=== PATIENT | female | born 1945 | race Caucasian/White ===

== ENCOUNTER → 2020-01-08 | Outpatient (CLI) | payer OTHER, BC ==
[~2020-01-08] MED LIST: ACID REDUCER20 MG PO; FENOFIBRATE160 MG PO; LISINOPRIL-HCT1 EAC1 PO; MULTIVITAMINS1 EAC7 PO; TYLENOL325 M1 PO
== END ==
LOC: LAB 13:49
PROVIDERS: ATTEND Orthopaedic Surgery
DX: Z01.812 Encounter for preprocedural laboratory examination (principal); Z20.828 Contact with and (suspected) exposure to other viral communicable diseases

== ENCOUNTER 2020-01-13 08:32 | Day surgery (SDC) | payer OTHER, BC ==
[2019-12-30 09:02] LABS: HEMATOCRIT 39.3 % (37.0-47.0); HEMOGLOBIN 13.4 gm/dL (12.0-15.0); MCH 31.2 pg (26.0-34.0); MCHC 34.2 g/dL (28.0-37.0); MCV 91.2 fL (80.0-100.0); RBC 4.31 mil/uL (4.20-5.00); RDW 13.1 % (10.5-14.5); WBC 5.3 thou/uL (4.0-11.0)
[2019-12-30 09:20] LABS: PROTIME 10.5 Seconds (9.3-11.4)
[2019-12-30 09:23] LABS: ALBUMIN 4.3 g/dL (3.4-5.0); CALCIUM 9.6 mg/dL (8.5-10.1); CREATININE 1.2 mg/dL (0.6-1.0); POTASSIUM 4.1 mmol/L (3.5-5.1)
[2019-12-30 09:26] LABS: URINE BILIRUBIN NEGATIVE (Negative); URINE BLOOD NEGATIVE (Negative); URINE CLARITY CLEAR; URINE COLOR YELLOW; URINE GLUCOSE-RANDOM* NEGATIVE (Negative); URINE KETONES NEGATIVE (Negative); URINE LEUKOCYTES-REFLEX 2+ (Negative); URINE NITRITE-REFLEX NEGATIVE (Negative); URINE PROTEIN (DIPSTICK) NEGATIVE (Negative); URINE SPECIFIC GRAVITY 1.025 (1.005-1.035); URINE UROBILINOGEN 0.2 E.U./dl (0.2-1.0)
[2019-12-30 09:38] LABS: BACTERIA-REFLEX 1-9 Few /HPF (None Seen); CASTS None Seen /LPF (None Seen); CRYSTALS None Seen /LPF (None Seen); SQUAMOUS 0-3 Few /LPF (0-3); URINE WBC-REFLEX 6-15 Few /HPF (0-5)
[2019-12-30 09:39] LABS: URINE RBC None Seen /HPF (0-2)
--- NOTE | 2019-12-30 10:18 | EKG ---
[facility] [place] [address] ELECTROCARDIOGRAM REPORT Name: TANIA PEREZ Room #: PRE [facility] M.R.#: [id number] Admission: Attend Phys: Jose Arriola MD Discharge: Date of : 41 Report #: [id number] THIS REPORT FOR: cc: RICHARDSON BROWN MD, JESSE MD Santiago, Patrick MD [facility] ~ THIS REPORT FOR: //name// [facility] Test Date: 2019-12-30 Test Time: 08:58:09 Pat Name: TANIA PEREZ Department: Room: Gender: F Binding Nicker: [facility] : 1945 Requested By: Jose Arriola Order Number: [id number] MD: Baldomero Dozier Measurements Intervals [place] Rate: 83 P: 41 ND: 178 QRS: 2 QRSD: 96 T: 53 QT: 371 QTc: 436 Interpretive Statements Sinus rhythm Low voltage, precordial leads No previous ECG available for comparison Electronically Signed On 12-30-2019 10:18:01 SHANK PINNER by Baldomero Dozier [email or web address] <ELECTRONICALLY SIGNED> By: Baldomero Dozier MD, [facility] 12/30/19 1018 7 Baldomero Dozier MD, FAC /EPI
[~2020-01-13] VITALS: Ht 167.6 cm; Wt 73.0 kg
[2020-01-13 10:27] VITALS: BP 132/81
[2020-01-13 16:06] VITALS: BP 126/88
--- NOTE | 2020-01-13 18:23 | NUR ---
PT ARRIVED ON UNIT, AOX4, VSS, PAIN CONTROLLED WITH ORAL PAIN ANALGESIC. PT DENIES N/V, TOLERATING DIET WELL. RIGHT KNEE JACY DRESSING IS CDI, TEDS, & SCDS. IV PATENT IN LEFT AC WITH FLUIDS RUNNING. NURSE EDUCATED NEURODIAGNOSTIC TECH LIGHT, WILL CONTINUE TO MONITOR.
[2020-01-13 19:18] VITALS: BP 121/61
--- NOTE | 2020-01-14 04:14 | NUR ---
ASSESSED PT A&OX4 PAIN MANGED WITH PO PAIN PILL. IV INTACT WITH IVF. PT UP WITH ASSISTX1 TO BSC. DENIES N/V. EVENING MEDS GIVEN AND PT YOSSI IT WELL. SCD'S JACY DRESSING IN PLACE. WILL CONT WITH POC TILL EOS
[2020-01-14 04:32] VITALS: BP 106/62
[2020-01-14 05:40] LABS: HEMATOCRIT 29.4 % (37.0-47.0); MCH 31.4 pg (26.0-34.0); MCHC 33.9 g/dL (28.0-37.0); MCV 92.5 fL (80.0-100.0); RBC 3.18 mil/uL (4.20-5.00); RDW 13.1 % (10.5-14.5); WBC 13.3 thou/uL (4.0-11.0)
[2020-01-14 07:45] VITALS: BP 109/69
[2020-01-14 12:38] VITALS: BP 109/69
--- NOTE | 2020-01-14 12:40 | O ---
[facility] [place] [address] OPERATIVE REPORT Name: TANIA PEREZ Room #: 447-P [facility] M.R.#: [id number] Admission: 01/13/20 Attend Phys: Jose Arriola MD Discharge: Date of : 41 Report #: [id number] THIS REPORT FOR: cc: RICHARDSON BROWN MD,RICHARDSON Arriola,Jose Becker MD ~ CC: RICHARDSON Arriola DATE OF SERVICE: 01/13/2020 PREOPERATIVE DIAGNOSIS: Right knee osteoarthritis. POSTOPERATIVE DIAGNOSIS: Right knee osteoarthritis. PROCEDURE: Right total knee arthroplasty using Navio robotic zoning assistant. SURGEON: Jose Arriola MD. FOREST SUPERVISOR: Soheila Gerardo PA-C. INDICATIONS FOR FOREST SUPERVISOR: Throughout the case, extensive retraction and manipulation of the knee was required. This was afforded to me by my zoning assistant. ANESTHESIA: LMA with an adductor canal block. IMPLANTS: [employer]hew size 5 Journey II BCS cobalt chrome femur, size 3 tibia, size 32 patella and a size 10 polyethylene. TOURNIQUET TIME: 48 minutes. ESTIMATED BLOOD LOSS: 25 mL. COMPLICATIONS: None. SPECIMENS: None. CONDITION UPON LEAVING THE OPERATING ROOM: Stable. INDICATIONS FOR PROCEDURE: The patient is a 74-year-old female with right knee osteoarthritis. She had failed conservative measures for this and after discussion with her, she elected for right total knee arthroplasty. DESCRIPTION OF PROCEDURE: Risks, benefits, alternatives, complications were discussed in detail with the patient including but not limited to risk of anesthesia, risk of damage to nerves, arteries, blood vessels, risk for [facility] [address] [place] [address] OPERATIVE REPORT Name: TANIA PEREZ Room #: 447-P [facility]#: [id number] Admission: 01/13/20 Attend Phys: Jose Arriola MD Discharge: Date of : 41 Report #: [id number] infection, bleeding, risk for continued knee pain, need for reoperation. Informed consent was obtained from the patient. Right knee was appropriately marked in the preoperative holding area. IV clindamycin was given for preoperative antibiotics. She was brought to the operating room and placed in a supine position on operating room table. LMA anesthesia was induced without complication. Tourniquet was placed on the right thigh. Right lower extremity was prepped and draped in normal sterile fashion. Timeout was performed properly identifying the patient and procedure as well as the instrumentation and implants. All in the operating room were in agreement. Right lower extremity was exsanguinated, tourniquet was inflated. Tourniquet time was 48 minutes. Standard midline approach to the knee was made with 10 blade through the skin. Dissection was taken down sharply to the fascia and deep flaps were developed medially and laterally. Fresh 10 blade was used to make an arthrotomy and the knee was inspected. There was severe lateral compartment osteoarthritis with moderate medial and patellofemoral osteoarthritis. ACL and PCL were removed sharply. Reference pins were placed in the femur and the tibia and the knee was then digitally mapped using the [employer] robotic system. Intraoperative plan was made and we sized the size 5 femur and a size 3 tibia and 10 spacer. After acceptance of the intraoperative plan, the distal femoral cut was made with a Navio bur. Distal femoral cutting block was pinned in place and distal femoral cut was made. Attention was turned to the tibia. Remainder of the menisci was removed with Bovie cautery. Tibial resection guide was pinned in place using the Navio for placement and tibial resection was made. After this, flexion and extension gaps were checked and found to have good balance in flexion and extension both medially and laterally. Tibia was sized, found to be a size 3. Size 3 tibial trial was placed, pinned and punched. Size 5 femoral trial was placed and box cut was made. This was trialed with a size 10 polyethylene, size 10 polyethylene demonstrated 1 mm laxity medially and laterally throughout range of motion of the knee. A 9 mm was resected from the posterior surface and a size 32 patellar trial button was placed. Knee was taken through range of motion, found to be stable, found to have good patellar tracking. Trial components were removed. Bony ends were thoroughly irrigated with normal saline. Final size 3 tibia, size 5 Journey II BCS cobalt chrome femur and a size 32 patella were cemented in place using standard cementation techniques. While the cement cured, a periarticular injection consisting of morphine, ropivacaine, epinephrine and Toradol was placed around the knee joint capsule. After the cement cured, the tourniquet was deflated. Hemostasis was obtained with Bovie cautery. A final size 10 polyethylene was placed. A gram of vancomycin was placed deep in the joint. Fascia was closed with 0 Vicryl, skin was closed with 2-0 Vicryl, 3-0 Monocryl. Dermabond and a JACY dressing was applied. The patient tolerated this procedure well and went to the recovery room under care of anesthesia postoperatively. <ELECTRONICALLY SIGNED> By: Jose Arriola MD 01/14/20 1240 [id number] Jose Arriola MD /nt
--- NOTE | 2020-01-14 13:18 | NUR ---
PT IS AOX4, VSS, PAIN IS CONTROLLED WITH ORAL PAIN ANALGESIC. PT IS UP TO BSC, WORKING WELL WITH PT/OT. JACY DRESSING IS CDI, TEDS ON BLE. IV REMOVED, DISCHARGE INSTRUCTIONS GIVEN TO PT. PT VERBALIZED UNDERSTANDING. BELONGINGS PACKED AND SENT HOME WITH PT.
== END 2020-01-14 13:40 | disposition home or self-care (01) ==
LOC: OR 08:32 → 4S 14:39 → OR 01-14 13:40
PROVIDERS: ATTEND Orthopaedic Surgery
DX: M17.11 Unilateral primary osteoarthritis, right knee (principal); M25.561 Pain in right knee; I10 Essential (primary) hypertension; K21.9 Gastro-esophageal reflux disease without esophagitis; Z98.890 Other specified postprocedural states; Z79.899 Other long term (current) drug therapy; Z88.0 Allergy status to penicillin; Z88.8 Allergy status to other drugs, medicaments and biological substances
CPT/HCPCS: 10102; 50010; 50101; 50415; 50954; 51130; 51225; 51320; 52001; 52282; 53000; 53078; 54118; 56527; 56528; 57095; 57103; 57110; 57127; 57179; 58239; 62110; 62900; 64042; 70005